=== PATIENT | female | born 1990 | race Caucasian/White ===

== ENCOUNTER 2017-07-27 13:08 | Emergency (ER) | payer SELFPAY ==
--- NOTE | 2017-07-27 13:31 | ED.PDOC ---
History of Present Illness - General Chief Complaint: Abdominal Pain Stated Complaint: right sided abdominal ethan Time Seen by Provider: 07/27/17 13:30 Information Source: patient Exam Limitations: no limitations - History of Present Illness Initial Comments: Park Cook 27 y/o female stated had sharp right sided abdominal pain which was intermittent initially for the last 2 days then it had been constant since yesterday so she decided to come and get checked here at er.Denies N/V, diarrhea,hematuria,dysuria,constipation able to w/o vomiting or pain.No fever/ chills.No vaginal discharge.No hx of sti. Abdominal Pain Onset Location: RUQ, RLQ, other - right side Pain Radiation: no radiation Quality: moderate, sharpness, steady Timing/Duration: other - see hpi Improving Factors: nothing Worsening Factors: nothing Associated Symptoms: denies symptoms Review of Systems - Review of Systems Constitutional: States: no symptoms reported EENTM: States: no symptoms reported Respiratory: States: no symptoms reported Cardiology: States: no symptoms reported Gastrointestinal/Abdominal: States: see HPI Musculoskeletal: States: no symptoms reported All other Systems: Reviewed and Negative, No Change from Baseline Past Medical History (General) - Patient Medical History Hx Seizures: No Hx Stroke: No Hx Dementia: No Hx Asthma: No Hx of COPD: No Hx Cardiac Disorders: No Hx Congestive Heart Failure: No Hx Pacemaker: No Hx Hypertension: No Hx Thyroid Disease: No Hx Diabetes: No Hx Gastroesophageal Reflux: No Hx Renal Disease: No Hx Cancer: No Hx of HIV: No Hx MRSA: No Surgical History: tonsillectomy - Vaccination History Hx Tetanus, Diphtheria Vaccination: Yes Hx Influenza Vaccination: Yes - Social History Hx Tobacco Use: Yes Hx Chewing Tobacco Use: No Hx Alcohol Use: Yes Hx Substance Use: No Hx Substance Use Treatment: No Hx Depression: Yes - depression Hx Physical Abuse: No Hx Emotional Abuse: No Hx Suspected Abuse: No - Female History Patient is a Female of Child Bearing Age (10 -59 yrs old): Yes Hx Last Menstrual Period: 06/29/17 - [facility] Patient : No Family Medical History - Family History Mother Living Status: Still Living Hx Family Stroke: Yes Hx Family Diabetes: Yes Father Living Status: Still Living Hx Family Hypertension: Yes Hx Cardiac Disease: Yes Hx Family Cancer: Yes Physical Exam - Physical Exam General Appearance: Alert, Comfortable, No apparent distress Eyes, Ears, Nose, Throat Exam: normal ENT inspection Neck: non-tender, full range of motion, supple Respiratory: lungs clear, normal breath sounds Cardiovascular/Chest: normal peripheral pulses, regular rate, rhythm, no murmur Peripheral Pulses: No deficit Gastrointestinal/Abdominal: soft, tenderness - right side abdomen on deep palpation;no guarding ,no direct/or rebound tenderness Progress - Progress Progress: 07/27/17 14:50 Vital Signs - 8 hr 07/27/17 07/27/17 13:36 14:35 Temperature 99.0 F Pulse Rate [ 88 64 left brachial] Respiratory 18 18 Rate Blood Pressure 109/72 112/73 [left brachial] O2 Sat by Pulse 99 100 Oximetry - Results/Orders Results/Orders: 07/27/17 13:31 HCG,QUALITATIVE URINE Stat 07/27/17 13:54 Lactated Ringers [Lr] 1,000 ml IVS ONCE 07/27/17 14:49 Abdomen/Pelvis w/Contrast [CT] Stat 07/27/17 14:50 Hold Metformin x 48Hrs [id number] Laboratory Results - last 24 hr 07/27/17 07/27/17 07/27/17 13:50 13:50 13:50 WBC 8.2 RBC 4.83 Hgb 15.1 Hct 44.3 MCV 91.6 MCH 31.1 H MCHC 34.0 RDW 13.3 Plt Count 251 MPV 9.0 Absolute Neuts (auto) 4.20 Absolute Lymphs (auto) 2.70 Absolute Monos (auto) 0.90 H Absolute Eos (auto) 0.30 Absolute Basos (auto) 0.10 Neutrophils % 51.3 Lymphocytes % 33.4 Monocytes % 11.1 H Eosinophils % 3.4 Basophils % 0.8 Sodium 138 Potassium 3.8 Chloride 109 Carbon Dioxide 21 Anion Gap 11.8 L BUN 8 Creatinine 0.59 L BUN/Creatinine Ratio 13.6 Random Glucose 74 Serum Osmolality 272.6 L Calcium 8.9 Total Bilirubin 0.6 AST 18 ALT 10 Alkaline Phosphatase 55 Serum Total Protein 6.4 Albumin 3.9 Globulin 2.5 Albumin/Globulin Ratio 1.6 Urine Color Yellow Urine Appearance Clear Urine pH 6.0 Ur Specific [place] 1.010 Urine Protein Negative Urine Glucose (UA) Negative Urine Ketones Negative Urine Blood Trace-intact H Urine Nitrite Negative Urine Bilirubin Negative Urine Urobilinogen 0.2 Ur Leukocyte Esterase Negative Urine RBC 0 Urine WBC 0 Ur Epithelial Cells 5-10 Urine Bacteria 0 Urine HCG, Qual 07/27/17 14:32 WBC RBC Hgb Hct MCV MCH MCHC RDW Plt Count MPV Absolute Neuts (auto) Absolute Lymphs (auto) Absolute Monos (auto) Absolute Eos (auto) Absolute Basos (auto) Neutrophils % Lymphocytes % Monocytes % Eosinophils % Basophils % Sodium Potassium Chloride Carbon Dioxide Anion Gap BUN Creatinine BUN/Creatinine Ratio Random Glucose Serum Osmolality Calcium Total Bilirubin AST ALT Alkaline Phosphatase Serum Total Protein Albumin Globulin Albumin/Globulin Ratio Urine Color Urine Appearance Urine pH Ur Specific [place] Urine Protein Urine Glucose (UA) Urine Ketones Urine Blood Urine Nitrite Urine Bilirubin Urine Urobilinogen Ur Leukocyte Esterase Urine RBC Urine WBC Ur Epithelial Cells Urine Bacteria Urine HCG, Qual Negative - EKG/XRAY/CT CT Ordered: Yes - abd/p-right ovarian cyst -6.25 cm Departure - Departure Clinical Impression: Abdominal pain Qualifiers: Abdominal location: lower abdomen, unspecified Qualified Code(s): R10.30 - Lower abdominal pain, unspecified Ovarian cyst Qualifiers: Laterality: right Qualified Code(s): N83.201 - Unspecified ovarian cyst, right side Time of Disposition: 16:40 Disposition: Discharge to Home or Self Care Condition: Good Departure Forms: ED Discharge - Pt. Copy, Patient Portal Self Enrollment Instructions: Ovarian Cyst, DI for Ovarian Cyst Referrals: Zelalem Altamirano MD [Primary Care Provider] - 1-2 Weeks Prescriptions: Tramadol HCl 50 mg PO TID PRN #14 tab PRN Reason: Pain Home Medications: Ambulatory Orders Tramadol HCl 50 mg PO TID PRN #14 tab 07/27/17 Additional Instructions: Follow up with primary Md Dr. 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
[2017-07-27 13:40] VITALS: TEMP 99
[2017-07-27] MEDS ORDERED: LACTATED RINGERS 1,000 ML ONE (13:53)
[2017-07-27] MEDS ORDERED: LACTATED RINGERS 1,000 ML IVS ONE (13:54)
[2017-07-27] MEDS ORDERED: KETOROLAC TROMETHAMINE INJ 30 MG/ML VIAL IV ONE (14:37)
[2017-07-27] MEDS ORDERED: PROMETHAZINE HCL INJ 25 MG/ML VIAL IM ONE (14:38)
--- NOTE | 2017-07-27 16:28 | CT ---
EXAM DESCRIPTION: Abdomen/Pelvis w/Contrast: Computed Tomography. CLINICAL HISTORY: pain abdomen. COMPARISON: None. TECHNIQUE: Spiral-axial scans at 5.0 mm intervals through the abdomen and pelvis, after nonionic IV contrast without oral contrast. Coronal and sagittal 2.0 mm reconstructions. Delayed scans, liver through the pelvis. Axial-spiral 5mm. No adverse reactions. Total Exam DLP: 343.39 mGy-cm. This exam was performed according to our departmental dose-optimization program which includes automated exposure control, adjustment of the mA and/or kV according to patient size and/or use of iterative reconstruction technique; to reduce radiation dose to as low as reasonably achievable (ALARA). FINDINGS: Pelvic Organs: Markedly enlarged round cystic structure in the midline mid pelvis impressing on the urinary bladder and abutting the anterior fundus of the uterus which is retroverted or retroflexed. Dimensions are 6.2 x 5.6 cm with Hounsfield density +7. No significant enhancement of the nunez; possibly small calcification at the interface between the uterus and the cyst. Moderate fluid in the cul-de-sac. Left adnexal structure interpreted to be ovary abutting the left superior urinary bladder and the horn of the left uterus. Lung bases and pleura: Negative. Liver, Stomach, Spleen, Adrenal Glands: Minimal gastric wall thickening and fluid. Solid organs are unremarkable. Pancreas, Gallbladder, Ducts: Gallbladder visualized. Other organs are negative. Kidneys and Ureters: Normal contrast enhancement with no hydronephrosis or perinephric fascial thickening. Mesentery: Minimal density in the lower abdomen and pelvis with fluid in the cul-de-sac. No ascites or free air. Aorta: Normal caliber. Small Bowel: Diffuse gas more proximally and more fluid distally but no significant distention or air-fluid levels. Terminal Ileum/Cecum: Normal caliber. Minimal gas in the appendix normal density of the surrounding mesentery. Colon: Mostly gas and minimal thecal material proximal and mid colon. Smaller caliber and fluid distally with gas in the rectum. Spine and Bony Pelvis: Negative. Abdominal Wall/Back Soft Tissues: Unremarkable. IMPRESSION: 1. 6.2 cm cystic structure possibly associated with the right ovary. This cyst appears simple with possible calcification in the superior margin with the uterus. Moderate fluid in the cul-de-sac. Retroflexed uterus. Left ovary in the left adnexa. Consider nonemergent pelvic ultrasound scan and less ovarian torsion is suspected. Nonemergent pelvic MRI scan can also be performed if clinically indicated. 2. Gastric wall thickening may be related to fasting status. No ascites. No other peritoneal or retroperitoneal masses. No free air. No bowel obstruction.. Electronically signed by: Gerardo Montenegro MD 07/27/2017 4:27 PM CDT
[2017-07-27 16:57] VITALS: BP 109/54; O2SAT 99
== END 2017-07-27 16:48 | disposition home or self-care (01) ==
LOC: ER 13:08
DX: N83.201 Unspecified ovarian cyst, right side (principal); Z87.891 Personal history of nicotine dependence
CPT/HCPCS: 74177; 80053; 81001; 81025; 85025; J1885; J2550; J7120

== ENCOUNTER 2017-11-28 08:01 | Emergency (ER) | payer SELFPAY ==
[2017-11-28] MEDS ORDERED: ALBUTEROL SULFATE 2.5 MG/3 ML VIAL NEB ONE (08:37)
--- NOTE | 2017-11-28 08:42 | ED.PDOC ---
History of Present Illness - General Chief Complaint: Respiratory Problem Time Seen by Provider: 11/28/17 08:36 Source: patient Exam Limitations: no limitations - History of Present Illness Timing/Duration: other - three days Cough Quality/Degree: dry cough Possible Cause: occasional episodes Improving Factors: nothing Worsening Factors: nothing Associated Symptoms: cough, nasal congestion, shortness of breath Respiratory Risk Factors: exposure to illness - pt's kids are ill, also Allergies/Adverse Reactions: Allergies NO KNOWN ALLERGY Allergy (Unverified 01/08/14 21:12) Home Medications: Ambulatory Orders Tramadol HCl 50 mg PO TID PRN #14 tab 07/27/17 Albuterol Inhaler [Ventolin Hfa Inhaler] 2 puff INH Q6HR PRN #1 inh 11/28/17 Prednisone [Deltasone] 20 mg PO BID #10 tab 11/28/17 Review of Systems - Review of Systems Constitutional: Denies: fever EENTM: States: nose congestion. Denies: throat pain Respiratory: States: cough, short of breath, wheezing Cardiology: Denies: chest pain Gastrointestinal/Abdominal: Denies: abdominal pain, nausea, vomiting Genitourinary: States: no symptoms reported Musculoskeletal: States: no symptoms reported. Denies: muscle pain Skin: States: no symptoms reported. Denies: rash Neurological: Denies: headache, weakness Endocrine: States: no symptoms reported Hematologic/Lymphatic: States: no symptoms reported Past Medical History (General) - Patient Medical History Hx Seizures: No Hx Stroke: No Hx Dementia: No Hx Asthma: No Hx of COPD: No Hx Cardiac Disorders: No Hx Congestive Heart Failure: No Hx Pacemaker: No Hx Hypertension: No Hx Thyroid Disease: No Hx Diabetes: No Hx Gastroesophageal Reflux: No Hx Renal Disease: No Hx Cancer: No Hx of HIV: No Hx MRSA: No Surgical History: no surgical history - Vaccination History Hx Tetanus, Diphtheria Vaccination: No Hx Influenza Vaccination: No Hx Pneumococcal Vaccination: No Immunizations Up to Date: No - Social History Hx Tobacco Use: Yes Hx Chewing Tobacco Use: No Hx Alcohol Use: No Hx Substance Use: No Hx Substance Use Treatment: No Hx Depression: No Feels Threatened In Home Enviroment: No Feels Threatened In a Relationship: No Hx Physical Abuse: No Hx Emotional Abuse: No Hx Suspected Abuse: No - Female History Patient is a Female of Child Bearing Age (10 -59 yrs old): Yes Hx Last Menstrual Period: 06/29/17 - [facility] Patient : No Expected Date of Delivery:: 01/13/14 Family Medical History - Family History Mother Living Status: Still Living Hx Family Stroke: Yes Hx Family Diabetes: Yes Father Living Status: Still Living Hx Family Hypertension: Yes Hx Cardiac Disease: Yes Hx Family Cancer: Yes Physical Exam - Physical Exam General Appearance: Alert, Comfortable Eye Exam: bilateral normal ENT Exam: pharynx normal, nasal congestion, nasal drainage Neck: non-tender, full range of motion Respiratory: chest non-tender, no respiratory distress, rhonchi, wheezing Cardiovascular/Chest: normal peripheral pulses, regular rate, rhythm, no edema Gastrointestinal/Abdominal: normal bowel sounds, non tender, soft Extremity: normal range of motion, non-tender, normal inspection Neurologic: normal mood/affect, oriented x 3 Skin Exam: normal color, warm/dry Lymphatic: no adenopathy Progress - EKG/XRAY/CT CT Ordered: No CT Interpretation Call Back: No Departure - Departure Clinical Impression: Bronchitis Upper respiratory infection Qualifiers: URI type: unspecified viral URI Qualified Code(s): J06.9 - Acute upper respiratory infection, unspecified Disposition: Discharge to Home or Self Care Departure Forms: ED Discharge - Pt. Copy, Patient Portal Self Enrollment Referrals: Zelalem Altamirano MD [Primary Care Provider] - 1-2 Weeks Prescriptions: Albuterol Inhaler [Ventolin Hfa Inhaler] 2 puff INH Q6HR PRN #1 inh PRN Reason: Cough Prednisone [Deltasone] 20 mg PO BID #10 tab Home Medications: Ambulatory Orders Tramadol HCl 50 mg PO TID PRN #14 tab 07/27/17 Albuterol Inhaler [Ventolin Hfa Inhaler] 2 puff INH Q6HR PRN #1 inh 11/28/17 Prednisone [Deltasone] 20 mg PO BID #10 tab 11/28/17
[2017-11-28 08:52] VITALS: TEMP 98.1
--- NOTE | 2017-11-28 09:05 | RAD ---
EXAM DESCRIPTION: Chest,1 View CLINICAL HISTORY: cough COMPARISON: None available TECHNIQUE: AP portable chest FINDINGS: The lungs are clear. There is no infiltrate or effusion. The heart is normal size. IMPRESSION: Normal portable chest Electronically signed by: Derek Marquez MD 11/28/2017 9:04 AM CDT
[2017-11-28] MEDS ORDERED: predniSONE 20 MG TAB PO ONE (09:54)
[2017-11-28 10:53] VITALS: BP 117/78
[2017-11-28 11:03] VITALS: O2SAT 99
== END 2017-11-28 10:23 | disposition home or self-care (01) ==
LOC: ER 08:01
DX: J06.9 Acute upper respiratory infection, unspecified (principal); J40 Bronchitis, not specified as acute or chronic; Z87.891 Personal history of nicotine dependence
CPT/HCPCS: 36415; 71045; 85025; 94640; J7512; J7611

== ENCOUNTER 2018-08-18 15:07 | Emergency (ER) | payer SELFPAY ==
[2018-08-18 15:31] VITALS: TEMP 99.4
[2018-08-18] MEDS ORDERED: ACETAMINOPHEN-CAFF-BUTALBITAL 1 EA TAB PO ONE (15:34)
[2018-08-18] MEDS ORDERED: AMOXICILLIN & POT CLAVULANATE 875 MG TAB PO ONE (15:34)
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
[2018-08-18 15:45] VITALS: BP 134/87; O2SAT 97
== END 2018-08-18 15:47 | disposition home or self-care (01) ==
LOC: ER 15:07
DX: S06.0X0A Concussion without loss of consciousness, initial encounter (principal); S05.11XA Contusion of eyeball and orbital tissues, right eye, initial encounter; S00.93XA Contusion of unspecified part of head, initial encounter; R07.81 Pleurodynia; Z87.891 Personal history of nicotine dependence; Y09 Assault by unspecified means; Y92.9 Unspecified place or not applicable

== ENCOUNTER 2019-03-02 18:11 | Emergency (ER) | payer SELFPAY ==
[2019-03-02 18:29] VITALS: TEMP 97.9
--- NOTE | 2019-03-02 18:57 | RAD ---
EXAM DESCRIPTION: Chest,2 Views CLINICAL HISTORY: 28 years Female rule out pneumonia COMPARISON: November 28, 2017. TECHNIQUE: Two view study of the chest was performed. FINDINGS: Cardiac size is within normal limits. Central vessels are not increased. No infiltrates or effusions seen. No consolidation. No pneumothorax. IMPRESSION: No active disease. Electronically signed by: Leti Alexander MD 03/02/2019 6:55 PM [employer]
--- NOTE | 2019-03-02 18:57 | ED.PDOC ---
History of Present Illness - General Chief Complaint: ENT Problem Stated Complaint: Cough, sore throat, bodyaches Time Seen by Provider: 03/02/19 18:35 - History of Present Illness Initial Comments: c/o having intermittent fever , non productive cough with sore throat , fatigue since 3 days , not getting better Prearrival Treatment: no prearrival treatment Improving Factors: nothing Worsening Factors: nothing Associated Symptoms: fever, sore throat Allergies/Adverse Reactions: Allergies NO KNOWN ALLERGY Allergy (Unverified 03/02/19 18:21) Home Medications: Ambulatory Orders Fluoxetine HCl 40 mg PO DAILY 03/02/19 Norgestimate-Ethinyl Estradiol [Sprintec 28 0.25-35 mg-Mcg] 1 tablet PO DAILY 03/02/19 Review of Systems - Review of Systems Constitutional: States: see HPI EENTM: States: see HPI Cardiology: States: no symptoms reported Gastrointestinal/Abdominal: States: no symptoms reported Genitourinary: States: no symptoms reported Musculoskeletal: States: no symptoms reported Skin: States: no symptoms reported Neurological: States: no symptoms reported Endocrine: States: no symptoms reported Hematologic/Lymphatic: States: no symptoms reported Past Medical History (General) - Patient Medical History Hx Seizures: No Hx Stroke: No Hx Dementia: No Hx Asthma: No Hx of COPD: No Hx Cardiac Disorders: No Hx Congestive Heart Failure: No Hx Pacemaker: No Hx Hypertension: No Hx Thyroid Disease: No Hx Diabetes: No Hx Gastroesophageal Reflux: No Hx Renal Disease: No Hx Cancer: No Hx of HIV: No Hx MRSA: No Surgical History: no surgical history - Vaccination History Hx Tetanus, Diphtheria Vaccination: Yes Hx Influenza Vaccination: No Hx Pneumococcal Vaccination: No - Social History Hx Tobacco Use: Yes Hx Chewing Tobacco Use: No Hx Alcohol Use: Yes Hx Substance Use: No Hx Substance Use Treatment: No Hx Depression: No Hx Physical Abuse: No Hx Emotional Abuse: No Hx Suspected Abuse: No - Female History Patient is a Female of Child Bearing Age (10 -59 yrs old): Yes Hx Last Menstrual Period: 06/29/17 - [facility] Patient : No Expected Date of Delivery:: 01/13/14 Family Medical History - Family History Mother Living Status: Still Living Hx Family Stroke: Yes Hx Family Diabetes: Yes Father Living Status: Still Living Hx Family Hypertension: Yes Hx Cardiac Disease: Yes Hx Family Cancer: Yes Physical Exam - Physical Exam General Appearance: Alert, Comfortable, Well Developed, Well Groomed, Well Nourished Eye Exam: bilateral normal Ear Exam: bilateral ear: auricle normal, canal normal Nasal Exam: normal inspection Throat Exam: normal mouth inspection, pharynx normal Neck: non-tender, full range of motion, supple Cardiovascular/Respiratory: regular rate, rhythm, no M/R/G, normal peripheral pulses Abdominal Exam: non-tender, no organomegaly Neurologic: no motor/sensory deficits, alert, normal mood/affect, oriented x 3 Skin Exam: normal color Progress - Results/Orders Results/Orders: Laboratory Results Group A Strep Rapid Negative (NEGATIVE) 03/02/19 18:20 Departure - Departure Clinical Impression: Flu, Upper respiratory infection Time of Disposition: 18:56 Disposition: Discharge to Home or Self Care Condition: Good Departure Forms: ED Discharge - Pt. Copy, Patient Portal Self Enrollment Instructions: DI for Ear Pain-Adult Diet: resume usual diet Activity: increase activity as tolerated Referrals: Zelalem Altamirano MD [Primary Care Provider] - 1-2 Weeks Home Medications: Ambulatory Orders Fluoxetine HCl 40 mg PO DAILY 03/02/19 Norgestimate-Ethinyl Estradiol [Sprintec 28 0.25-35 mg-Mcg] 1 tablet PO DAILY 03/02/19
[2019-03-02 19:12] VITALS: BP 112/81; O2SAT 97
== END 2019-03-02 19:12 | disposition home or self-care (01) ==
LOC: ER 18:11
DX: J11.1 Influenza due to unidentified influenza virus with other respiratory manifestations (principal); Z87.891 Personal history of nicotine dependence

== ENCOUNTER 2019-04-04 11:23 | Emergency (ER) | payer SELFPAY ==
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
[2019-04-04 12:47] VITALS: BP 135/88; TEMP 98.1; O2SAT 99
== END 2019-04-04 12:50 | disposition home or self-care (01) ==
LOC: ER 11:23
DX: S20.212A Contusion of left front wall of thorax, initial encounter (principal); S83.91XA Sprain of unspecified site of right knee, initial encounter; S00.93XA Contusion of unspecified part of head, initial encounter; S00.511A Abrasion of lip, initial encounter; M54.5 Low back pain; M25.562 Pain in left knee; Z87.891 Personal history of nicotine dependence; Z79.899 Other long term (current) drug therapy; Y09 Assault by unspecified means; Y92.9 Unspecified place or not applicable

== ENCOUNTER 2019-12-09 15:31 | Emergency (ER) | payer SELFPAY ==
[2019-12-09 15:45] VITALS: TEMP 97.9
--- NOTE | 2019-12-09 15:45 | ED.PDOC ---
History of Present Illness - General Chief Complaint: Respiratory Problem Stated Complaint: cough,runny nose,congestion Time Seen by Provider: 12/09/19 15:43 Source: patient Exam Limitations: no limitations Additional Information: Pt says she's had cough, occasionally productive for the past 8 days. She has sinus congestion and pain, sore throat, chest congestion. She denies F/C. She has slight diarrhea, but no N/V. No abdominal pain, no urinary symptoms. No known COVID exposure, but says one of her children was recently dx with strep pharyngitis. She also says that she has another child currently with an ear infection. She denies SOB and CP. - History of Present Illness Comments: Started 8 days ago Cough Quality/Degree: mild, moderate, dry cough Possible Cause: no prior episodes Improving Factors: medication Worsening Factors: nothing Associated Symptoms: nasal congestion, nasal drainage, sore throat Allergies/Adverse Reactions: Allergies NO KNOWN ALLERGY Allergy (Unverified 03/02/19 18:21) Home Medications: Ambulatory Orders Fluoxetine HCl [Fluoxetine Hydrochloride] 40 mg PO DAILY 03/02/19 Norgestimate-Ethinyl Estradiol [Sprintec 28 0.25-35 mg-Mcg] 1 tablet PO DAILY 03/02/19 Acetamin W/Cod #3 Tab [Tylenol w/CODEINE #3] 1 - 2 tablet PO Q6HR #20 tab 04/04/19 Ibuprofen [Motrin] 400 mg PO Q6HR #20 tab 04/04/19 Methocarbamol [Robaxin] 1 - 2 tablet PO Q6HR #20 tab 04/04/19 Azithromycin [Zithromax Z-Walter] 250 mg PO DAILY #6 tab 12/09/19 Guaifenesin 400 mg PO TID #30 tab 12/09/19 Review of Systems - Review of Systems Constitutional: States: no symptoms reported. Denies: chills, fever EENTM: States: nose pain, nose congestion, throat pain. Denies: ear pain, ear discharge, throat swelling Respiratory: States: cough. Denies: short of breath, stridor, wheezing Cardiology: States: no symptoms reported Gastrointestinal/Abdominal: States: diarrhea. Denies: abdominal pain, constipation, nausea, vomiting Genitourinary: States: no symptoms reported Musculoskeletal: States: no symptoms reported Skin: States: no symptoms reported Endocrine: States: no symptoms reported Past Medical History (General) - Patient Medical History Hx Seizures: No Hx Stroke: No Hx Dementia: No Hx Asthma: No Hx of COPD: No Hx Cardiac Disorders: No Hx Congestive Heart Failure: No Hx Pacemaker: No Hx Hypertension: No Hx Thyroid Disease: No Hx Diabetes: No Hx Gastroesophageal Reflux: No Hx Renal Disease: No Hx Cancer: No Hx of HIV: No Hx MRSA: No - Vaccination History Hx Tetanus, Diphtheria Vaccination: Yes Hx Influenza Vaccination: No Hx Pneumococcal Vaccination: No - Social History Hx Tobacco Use: Yes Hx Chewing Tobacco Use: No Hx Alcohol Use: Yes Hx Substance Use: No Hx Substance Use Treatment: No Hx Depression: No Hx Physical Abuse: No Hx Emotional Abuse: No Hx Suspected Abuse: No - Female History Hx Last Menstrual Period: 06/29/17 - [facility] Patient : No Expected Date of Delivery:: 01/13/14 Family Medical History - Family History Mother Living Status: Still Living Hx Family Stroke: Yes Hx Family Diabetes: Yes Father Living Status: Still Living Hx Family Hypertension: Yes Hx Cardiac Disease: Yes Hx Family Cancer: Yes Physical Exam - Physical Exam General Appearance: Alert, No apparent distress, Well Developed, Well Groomed, Well Hydrated, Well Nourished ENT Exam: nasal congestion, pharyngeal erythema, other - sinus tenderness of fro ntal and maxillary sinuses bilaterally Neck: non-tender, full range of motion, supple, normal inspection Respiratory: chest non-tender, lungs clear, normal breath sounds, no respiratory distress, no accessory muscle use Cardiovascular/Chest: normal peripheral pulses, regular rate, rhythm, no edema, no gallop, no JVD Neurologic: alert, normal mood/affect, oriented x 3 Skin Exam: normal color, warm/dry Lymphatic: no adenopathy Departure - Departure Clinical Impression: Sinusitis, Upper respiratory tract infection, Tobacco use, Elevated blood pressure reading Time of Disposition: 15:46 Disposition: Discharge to Home or Self Care Condition: Excellent Departure Forms: ED Discharge - Pt. Copy, Patient Portal Self Enrollment Diet: resume usual diet Referrals: Zelalem Altamirano MD [Primary Care Provider] - 1-2 Weeks Prescriptions: Guaifenesin 400 mg PO TID #30 tab Azithromycin [Zithromax Z-Walter] 250 mg PO DAILY #6 tab Home Medications: Ambulatory Orders Fluoxetine HCl [Fluoxetine Hydrochloride] 40 mg PO DAILY 03/02/19 Norgestimate-Ethinyl Estradiol [Sprintec 28 0.25-35 mg-Mcg] 1 tablet PO DAILY 03/02/19 Acetamin W/Cod #3 Tab [Tylenol w/CODEINE #3] 1 - 2 tablet PO Q6HR #20 tab 04/04/19 Ibuprofen [Motrin] 400 mg PO Q6HR #20 tab 04/04/19 Methocarbamol [Robaxin] 1 - 2 tablet PO Q6HR #20 tab 04/04/19 Azithromycin [Zithromax Z-Walter] 250 mg PO DAILY #6 tab 12/09/19 Guaifenesin 400 mg PO TID #30 tab 12/09/19
[2019-12-09 16:00] VITALS: BP 144/97; O2SAT 98
== END 2019-12-09 15:55 | disposition home or self-care (01) ==
LOC: ER 15:31
DX: J06.9 Acute upper respiratory infection, unspecified (principal); J32.9 Chronic sinusitis, unspecified; R03.0 Elevated blood-pressure reading, without diagnosis of hypertension; R19.7 Diarrhea, unspecified; Z72.0 Tobacco use; Z79.899 Other long term (current) drug therapy; Z20.828 Contact with and (suspected) exposure to other viral communicable diseases